=== PATIENT | female | born 1955 | race Hispanic/Latino ===

== ENCOUNTER → 2017-09-18 | Outpatient (CLI) | payer OTHER | LOC: OIH 11:14 | PROVIDERS: ATTEND Family Medicine | DX: M25.561 Pain in right knee (principal) | CPT/HCPCS: 73560 ==

== ENCOUNTER → 2018-05-27 | Outpatient (CLI) | payer OTHER | END | disposition home or self-care (01) | LOC: RAH 15:15 | PROVIDERS: ATTEND Internal Medicine | DX: R05 Cough (principal) | CPT/HCPCS: 71046 ==

== ENCOUNTER → 2018-07-30 | Outpatient (CLI) | payer OTHER, MEDICARE | END | disposition home or self-care (01) | LOC: RAH 16:36 | PROVIDERS: ATTEND Internal Medicine | DX: M19.012 Primary osteoarthritis, left shoulder (principal); M19.011 Primary osteoarthritis, right shoulder | CPT/HCPCS: 73030; 73060 ==

== ENCOUNTER 2019-03-27 07:54 | Day surgery (SDC) | payer OTHER, MEDICARE ==
[2019-03-25 10:34] VITALS: BP 160/78
[2019-03-25 10:52] LABS: BASOPHILS % (AUTO) 0.5 % (0.0-5.0); HEMATOCRIT 34.4 % (36-48); MEAN CORPUSCULAR HEMOGLOBIN 30.9 pg (27.0-33.0); MEAN CORPUSCULAR VOLUME 90.8 fL (79-99); NEUTROPHILS % (AUTO) 65.5 % (40.0-77.0); PLATELET COUNT (AUTO) 180 K/uL (130-400); RED BLOOD CELL COUNT(AUTO) 3.79 MIL/uL (4.00-5.50); RED CELL DISTRIBUTION WIDTH 13.2 % (11.0-15.5); WHITE BLOOD COUNT (AUTO) 7.5 K/uL (4.8-10.8)
[2019-03-25 11:07] LABS: INR 1.03 (0.85-1.15); PARTIAL THROMBOPLASTIN TIME 28.1 SEC (26.3-35.5); PROTHROMBIN TIME 10.8 SEC (9.6-11.6)
[2019-03-25 11:11] LABS: CREATININE 1.3 mg/dL (0.5-1.5); POTASSIUM 5.3 mmol/L (3.5-5.1)
[2019-03-25 11:47] LABS: APPEARANCE,URINE Clear (CLEAR); BILIRUBIN,URINE Negative (NEGATIVE); COLOR,URINE Yellow (YELLOW); GLUCOSE, URINE (UA) Negative (NEGATIVE); KETONES,URINE Negative (NEGATIVE); LEUKOCYTE ESTERASE ,URINE Moderate (NEGATIVE); NITRATE,URINE Negative (NEGATIVE); OCCULT BLOOD,URINE Negative (NEGATIVE); PROTEIN,URINE Trace mg/dL (NEGATIVE)
[2019-03-25 12:12] LABS: BACTERIA,URINE Rare /HPF (None Seen); RBC,URINE None Seen /HPF (0-1); SQUAMOUS EPITHELIAL CELL,UR 0-2 /HPF (0-2)
--- NOTE | 2019-03-26 11:20 | NUR ---
LABS ABNORMAL LABS REPORTED TO SANTO HERNANDEZ, FURTHER ORDERS GIVEN AND WILL BE CARRIED OUT
[~2019-03-27] VITALS: Ht 152.4 cm; Wt 114.6 kg
[2019-03-27] VITALS (12 sets, daily range): BP systolic 127–174; BP diastolic 50–80
[~2019-03-27 07:54] MED LIST: ATOR10TA69 PO; DULO60CA64 PO; ERGO500014 PO; ESOM40CA PO; HYDR12.54 PO; LORA10TA7 PO; MELA5CAP PO; METO-409 PO; MULT-1077 PO; VITA400C19 PO
[2019-03-27] MEDS ORDERED: SODIUM CHLORIDE 0.9% 1000ML 1,000 ML IV ONE (08:02)
[2019-03-27] MEDS ORDERED: BIVALIRUDIN 250 MG/VIAL IV ONE (09:36)
[2019-03-27] MEDS ORDERED: IOHEXOL 350 MG/ML 100ML INFUS..BTL IV ONE (09:36)
[2019-03-27] MEDS ORDERED: IOHEXOL-350 50ML VIAL IV ONE (09:36)
[2019-03-27] MEDS ORDERED: NITROGLYCERIN 5 MG/ML 10 ML VIAL IV ONE (09:36)
[2019-03-27] MEDS ORDERED: ENALAPRILAT DIHYDRATE 1.25 MG/ML 2ML VIAL IVP ONE (10:57)
[2019-03-27] MEDS ORDERED: SODIUM CHLORIDE 0.9% 1000ML 1,000 ML IV SCH (11:17)
--- NOTE | 2019-03-27 16:40 | NUR ---
DISCHARGE PT DISCHARGED VIA WHEELCHAIR WITH DAUGHTER. PT STABLE. CATH SITE TO RIGHT GROIN REMAINS SOFT, DRESSING DRY AND INTACT, NO OOZING NO HEMATOMA NOTED. VOIDED PRIOR TO DISCHARGE, TOLERATED DIET WELL. DISCHARGE INSTRUCTIONS GIVEN TO DAUGHTER AND PT, ALSO DEMONSTRATED TO DAUGHTER ON HOW TO MONITOR CATH SITE FOR BLEEDING HEMATOMA, VERBALIZED UNDERSTANDING.
== END 2019-03-27 16:40 | disposition home or self-care (01) ==
LOC: DAH 07:54
PROVIDERS: ATTEND Internal Medicine Cardiovascular Disease
DX: R06.02 Shortness of breath (principal); I10 Essential (primary) hypertension; I44.7 Left bundle-branch block, unspecified; F41.9 Anxiety disorder, unspecified; Z79.899 Other long term (current) drug therapy; Z90.49 Acquired absence of other specified parts of digestive tract; Z96.659 Presence of unspecified artificial knee joint
CPT/HCPCS: 36415 ×2; 71045; 80048; 81001; 84132; 85025; 85610; 85730; 93005; 93460; A4215; A4216; A4221; A4222; A4223 ×2; A4606; C1760; C1894 ×3; J1644; J3490 ×2; J7030; Q9965; Q9967 ×2; 99156; 99157; J0583

== ENCOUNTER → 2022-09-26 | Outpatient (CLI) | payer OTHER, MEDICARE ==
[~2022-09-26] MED LIST changes: +VITA-395 PO; -VITA400C19 PO
== END | disposition home or self-care (01) ==
LOC: RAH 11:54
PROVIDERS: ATTEND Internal Medicine
DX: M19.011 Primary osteoarthritis, right shoulder (principal); M25.511 Pain in right shoulder; M79.7 Fibromyalgia
CPT/HCPCS: 73030

== ENCOUNTER → 2023-01-21 | Outpatient (CLI) | payer OTHER, MEDICARE ==
[~2023-01-21] MED LIST changes: +AMLO5TAB4 PO; +APIX5TAB PO; -ATOR10TA69 PO; +CETI10TA57 PO; +CHOL200059 PO; -ERGO500014 PO; -ESOM40CA PO; +FOLI-103 PO; +GABA300C PO; -HYDR12.54 PO; -LORA10TA7 PO; +METO-391 PO; -METO-409 PO; -MULT-1077 PO; +OMEP40CA21 PO; +TIRZ5PEN SQ; -VITA-395 PO
== END | disposition home or self-care (01) ==
LOC: RAH 14:30
PROVIDERS: ATTEND Internal Medicine
DX: M47.815 Spondylosis without myelopathy or radiculopathy, thoracolumbar region (principal); M19.09 Primary osteoarthritis, other specified site; W19.XXXS Unspecified fall, sequela; X58.XXXS Exposure to other specified factors, sequela
CPT/HCPCS: 71046; 71100

== ENCOUNTER 2023-11-15 18:08 | Emergency (ER) | payer MEDICARE ==
[~2023-11-15] VITALS: Ht 152.4 cm; Wt 104.3 kg
[2023-11-15 19:10] LABS: BASOPHILS # (AUTO) 0.06 K/uL (0.00-0.20); BASOPHILS % (AUTO) 0.7 % (0.0-5.0); EOSINOPHILS # (AUTO) 0.23 K/uL (0.00-0.70); EOSINOPHILS % (AUTO) 2.6 % (0.0-8.0); IMMATURE GRANULOCYTE ABSOLUTE 0.11 K/uL (0-1); LYMPHOCYTES # (AUTO) 1.7 K/uL (1.0-4.8); LYMPHOCYTES % (AUTO) 19.6 % (21.0-51.0); MEAN CORPUSCULAR HEMOGLOBIN 29.9 pg (27.0-33.0); MEAN CORPUSCULAR HGB CONC 30.6 g/dL (32.0-36.0); MEAN CORPUSCULAR VOLUME 97.5 fL (79-99); MONOCYTES # (AUTO) 0.6 K/uL (0.1-1.0); MONOCYTES % (AUTO) 7.1 % (3.0-13.0); NEUTROPHILS # (AUTO) 6.1 K/uL (1.8-7.7); NEUTROPHILS % (AUTO) 68.8 % (40.0-77.0); PLATELET COUNT (AUTO) 276 K/uL (130-400); RED BLOOD CELL COUNT(AUTO) 3.18 MIL/uL (4.00-5.50); RED CELL DISTRIBUTION WIDTH 14.1 % (11.0-15.5); WHITE BLOOD COUNT (AUTO) 8.9 K/uL (4.8-10.8)
[2023-11-15 19:21] LABS: CREATININE 1.9 mg/dL (0.5-1.0); POTASSIUM 5.2 mmol/L (3.5-5.1)
[2023-11-15 19:26] LABS: BILIRUBIN,TOTAL 0.3 mg/dL (0.2-1.0); TOTAL PROTEIN, SERUM 7.8 g/dL (6.0-8.3)
[2023-11-15 21:00] LABS: APPEARANCE,URINE CLOUDY (CLEAR); BILIRUBIN,URINE NEGATIVE (NEGATIVE); COLOR,URINE LIGHT-YELLOW (YELLOW); GLUCOSE, URINE (UA) NEGATIVE (NEGATIVE); KETONES,URINE NEGATIVE (NEGATIVE); LEUKOCYTE ESTERASE ,URINE 500 Leu/uL (NEGATIVE); NITRATE,URINE 2+ (NEGATIVE); OCCULT BLOOD,URINE NEGATIVE (NEGATIVE); PH,URINE 5.5 (5.0-8.0); PROTEIN,URINE 20 mg/dL (NEGATIVE); UROBILINOGEN,URINE 0.2 mg/dL (0.2-1.0)
[2023-11-15 21:19] LABS: ADD UA MICROSCOPIC YES
[2023-11-15 21:21] LABS: BACTERIA,URINE MOD /HPF (None Seen); MUCUS,URINE RARE LPF (None Seen); NON-SQUAMOUS EPITHELIAL CELL 2 /HPF (0-2); OTHER CASTS, URINE 3 /LPF (None Seen); SQUAMOUS EPITHELIAL CELL,UR MANY /HPF (0-2); WBC CLUMP FEW /HPF (0-1); WBC,URINE 51-100 /HPF (0-1)
[2023-11-15] MEDS: CEFTRIAXONE 1G VIAL IV ONE (21:37)
[2023-11-15] MEDS ORDERED: CEFD300C3 PO (21:47)
[2023-11-15] MEDS: KAYEXALATE 15GM/60ML PO ONE (21:48)
[2023-11-15 22:07] VITALS: BP 128/78; PULSE 60; RESP 18; O2SAT 98
== END 2023-11-15 22:08 | disposition home or self-care (01) ==
LOC: EDH 18:08
DX: I12.9 Hypertensive chronic kidney disease with stage 1 through stage 4 chronic kidney disease, or unspecified chronic kidney disease (principal); E11.22 Type 2 diabetes mellitus with diabetic chronic kidney disease; N18.4 Chronic kidney disease, stage 4 (severe); D63.1 Anemia in chronic kidney disease; N39.0 Urinary tract infection, site not specified; E78.00 Pure hypercholesterolemia, unspecified; Z79.899 Other long term (current) drug therapy; Z90.49 Acquired absence of other specified parts of digestive tract; Z98.890 Other specified postprocedural states; Z88.0 Allergy status to penicillin
CPT/HCPCS: 99284; 96374; 80053; 85025; 86850; 86900; 86901; 87077; 87088; 87186; 81001; 36415; J0696

== ENCOUNTER 2024-04-09 12:48 | Emergency (ER) | payer MEDICARE ==
[~2024-04-09] VITALS: Ht 152.4 cm; Wt 111.1 kg
[~2024-04-09 12:48] MED LIST changes: +CEFD300C3 PO
[2024-04-09 14:38] LABS: BASOPHILS # (AUTO) 0.03 K/uL (0.00-0.20); BASOPHILS % (AUTO) 0.3 % (0.0-5.0); EOSINOPHILS # (AUTO) 0.01 K/uL (0.00-0.70); EOSINOPHILS % (AUTO) 0.1 % (0.0-8.0); IMMATURE GRANULOCYTE ABSOLUTE 0.05 K/uL (0-1); LYMPHOCYTES % (AUTO) 9.7 % (21.0-51.0); MEAN CORPUSCULAR HEMOGLOBIN 29.7 pg (27.0-33.0); MEAN CORPUSCULAR HGB CONC 32.4 g/dL (32.0-36.0); MEAN CORPUSCULAR VOLUME 91.8 fL (79-99); MONOCYTES % (AUTO) 10.2 % (3.0-13.0); NEUTROPHILS # (AUTO) 7.8 K/uL (1.8-7.7); NEUTROPHILS % (AUTO) 79.2 % (40.0-77.0); PLATELET COUNT (AUTO) 163 K/uL (130-400); RED BLOOD CELL COUNT(AUTO) 3.16 MIL/uL (4.00-5.50); RED CELL DISTRIBUTION WIDTH 12.4 % (11.0-15.5); WHITE BLOOD COUNT (AUTO) 9.9 K/uL (4.8-10.8)
[2024-04-09 14:51] LABS: CREATININE 3.2 mg/dL (0.5-1.0); POTASSIUM 4.4 mmol/L (3.5-5.1)
[2024-04-09] MEDS: 0.9%NACL 1000ML 1,000 ML IV ONE (15:03)
[2024-04-09 16:27] VITALS: BP 135/75; PULSE 90; RESP 18; TEMP 98.4; O2SAT 100
[2024-04-09 16:35] LABS: APPEARANCE,URINE CLOUDY (CLEAR); BILIRUBIN,URINE NEGATIVE (NEGATIVE); COLOR,URINE YELLOW (YELLOW); GLUCOSE, URINE (UA) NEGATIVE (NEGATIVE); KETONES,URINE NEGATIVE (NEGATIVE); LEUKOCYTE ESTERASE ,URINE 500 Leu/uL (NEGATIVE); NITRATE,URINE NEGATIVE (NEGATIVE); OCCULT BLOOD,URINE MODERATE (NEGATIVE); PH,URINE 5.5 (5.0-8.0); PROTEIN,URINE 50 mg/dL (NEGATIVE); UROBILINOGEN,URINE 0.2 mg/dL (0.2-1.0)
[2024-04-09 16:45] LABS: ADD UA MICROSCOPIC YES
[2024-04-09 16:47] LABS: BACTERIA,URINE FEW /HPF (None Seen); MUCUS,URINE RARE LPF (None Seen); OTHER CASTS, URINE 2 /LPF (None Seen); SQUAMOUS EPITHELIAL CELL,UR FEW /HPF (0-2); UNCLASSIFIED CRYSTAL 2 /HPF (None Seen); WBC CLUMP FEW /HPF (0-1); WBC,URINE 51-100 /HPF (0-1); YEAST,URINE BUDDING RARE /HPF (None Seen)
== END 2024-04-09 17:15 | disposition home or self-care (01) ==
LOC: EDH 12:48
DX: I12.9 Hypertensive chronic kidney disease with stage 1 through stage 4 chronic kidney disease, or unspecified chronic kidney disease (principal); E11.22 Type 2 diabetes mellitus with diabetic chronic kidney disease; N18.4 Chronic kidney disease, stage 4 (severe); D63.1 Anemia in chronic kidney disease; Z20.822 Contact with and (suspected) exposure to COVID-19; E78.00 Pure hypercholesterolemia, unspecified; R53.1 Weakness; R06.02 Shortness of breath; E66.9 Obesity, unspecified; Z68.30 Body mass index [BMI] 30.0-30.9, adult; Z96.653 Presence of artificial knee joint, bilateral; Z88.0 Allergy status to penicillin; Z79.899 Other long term (current) drug therapy; Z86.718 Personal history of other venous thrombosis and embolism; Z79.01 Long term (current) use of anticoagulants
CPT/HCPCS: 99285; 71045; 87426; 84484; 80048; 85025; 87086 ×2; 87186; 81001; 36415; 93005; J7030

== ENCOUNTER 2024-10-20 05:54 | Day surgery (SDC) | payer MEDICARE ==
[2024-10-20] VITALS (10 sets, daily range): BP systolic 119–160; BP diastolic 56–70; PULSE 53–61; RESP 16–17; TEMP 97.3–97.6
[~2024-10-20] VITALS: Ht 152.4 cm; Wt 102.1 kg
[~2024-10-20 05:54] MED LIST changes: +ALPR0.255 PO; +AMLO2.5T4 PO; -AMLO5TAB4 PO; -CEFD300C3 PO; -CETI10TA57 PO; -CHOL200059 PO; -FOLI-103 PO; -MELA5CAP PO; +SODI454P10 PO; +SODI650T PO; +TRIM100T PO; +VITAD50000 PO
[2024-10-20] MEDS: 0.9%NACL 1000ML 1,000 ML IV ONE (06:39)
[2024-10-20] MEDS ORDERED: LIDOCAINE PF 100MG/5ML (2%) SYRINGE 5ML ONE (07:48)
[2024-10-20] MEDS ORDERED: proPOFol 10 MG/ML 20ML VIAL IV ONE ×2 (07:48)
== END 2024-10-20 09:04 | disposition home or self-care (01) ==
LOC: DAH 05:54 → ENDO 05:54
PROVIDERS: ATTEND Internal Medicine Gastroenterology
DX: R12 Heartburn (principal); K31.89 Other diseases of stomach and duodenum; K29.50 Unspecified chronic gastritis without bleeding; K31.7 Polyp of stomach and duodenum; K31.84 Gastroparesis; K21.00 Gastro-esophageal reflux disease with esophagitis, without bleeding; K44.9 Diaphragmatic hernia without obstruction or gangrene; R19.7 Diarrhea, unspecified; R11.0 Nausea; I10 Essential (primary) hypertension; F32.9 Major depressive disorder, single episode, unspecified; I82.91 Chronic embolism and thrombosis of unspecified vein; E78.5 Hyperlipidemia, unspecified; F41.9 Anxiety disorder, unspecified; M79.7 Fibromyalgia; E66.9 Obesity, unspecified; Z68.41 Body mass index [BMI] 40.0-44.9, adult; Z98.890 Other specified postprocedural states; Z90.49 Acquired absence of other specified parts of digestive tract; Z96.659 Presence of unspecified artificial knee joint; Z83.3 Family history of diabetes mellitus; Z82.49 Family history of ischemic heart disease and other diseases of the circulatory system; Z88.0 Allergy status to penicillin; Z79.899 Other long term (current) drug therapy
CPT/HCPCS: 43251; 43239; J7030 ×2; J2003; J2704; A4620; A4215; A4223; A7002; A4222; A4221; A4663; A4606; J3490

== ENCOUNTER → 2024-11-30 | Outpatient (CLI) | payer MEDICARE, MEDICAID ==
--- NOTE | 2024-11-30 13:11 | HMCIMG ---
Exam Type: RIBS UNILAT 2V LT Clinical Information: UNSPECIFIED FALL, INITIAL ENCOUNTER Comparison: None Findings: Routine views reveal no evidence of fracture, dislocation, destructive process, or other rib abnormalities. No soft tissue abnormality is noted either. There is no evidence of pneumothorax. IMPRESSION: NORMAL RIB SERIES.
--- NOTE | 2024-11-30 13:19 | HMCIMG ---
Exam Type: CHEST 2VWS Clinical Information: PLEURODYNIA Comparison: None Findings: The lungs are clear of infiltrates. The heart is normal in size. The bony and soft tissue structures of the chest are unremarkable. Impression: Clear lungs.
== END | disposition home or self-care (01) ==
LOC: RAH 11:01
PROVIDERS: ATTEND Nurse Practitioner Family
DX: R07.81 Pleurodynia (principal)
CPT/HCPCS: 71046; 71100